=== PATIENT | female | born 1965 | race Caucasian/White ===

== ENCOUNTER → 2019-11-25 00:01 | Outpatient (BNVA) | payer SELFPAY | PROVIDERS: PCP Nurse Practitioner; Referring Provider Nurse Practitioner; Visit Provider Nurse Practitioner | DX: J01.40 Acute pansinusitis, unspecified (principal); Z76.89 Persons encountering health services in other specified circumstances; F17.200 Nicotine dependence, unspecified, uncomplicated | CPT/HCPCS: 80053; 80061; 83036; 85025 ==

== ENCOUNTER 2020-01-04 14:20 | Outpatient (CLI) | payer SELFPAY ==
--- NOTE | 2020-01-04 14:31 | MM_ITS ---
WS: [id number] BILATERAL DIGITAL SCREENING MAMMOGRAPHY WITH CAD CLINICAL INFORMATION: SCREEN HISTORY: Screening mammogram. No current complaints. COMPARISON: None. TECHNIQUE: Bilateral CC and MLO views. FINDINGS: Scattered fibroglandular densities bilaterally. No suspicious focal mass, asymmetry, calcifications, or architectural distortion. No evidence of malignancy. MM/[place] [id number] IMPRESSION: BI-RADS: 1-Negative FOLLOW UP: 1 Year Follow-up Recommend return to annual screening mammography.
== END 2020-01-04 14:21 | disposition home or self-care (01) ==
LOC: RADSHAW 14:24
PROVIDERS: PCP Nurse Practitioner; Visit Provider Nurse Practitioner
DX: Z12.31 Encounter for screening mammogram for malignant neoplasm of breast (principal)
CPT/HCPCS: 77067

== ENCOUNTER → 2020-07-26 11:08 | Outpatient (BNVA) | payer SELFPAY | PROVIDERS: PCP Family Medicine; Visit Provider Family Medicine | DX: Z13.6 Encounter for screening for cardiovascular disorders (principal); R79.89 Other specified abnormal findings of blood chemistry | CPT/HCPCS: 80053; 80061; 85025 ==

== ENCOUNTER → 2020-10-18 15:20 | Outpatient (BNVA) | payer SELFPAY | PROVIDERS: PCP Family Medicine; Visit Provider Family Medicine | DX: R10.9 Unspecified abdominal pain (principal) | CPT/HCPCS: 81000; 87086 ==

== ENCOUNTER → 2021-10-13 16:17 | Outpatient (BNVA) | payer OTHER, SELFPAY | PROVIDERS: PCP Family Medicine; Visit Provider Nurse Practitioner Family | DX: Z20.822 Contact with and (suspected) exposure to COVID-19 (principal) | CPT/HCPCS: 87635 ==

== ENCOUNTER 2021-11-30 12:03 | Emergency (ER) | payer SELFPAY ==
[2021-11-30 12:18] VITALS: BP 120/78; PULSE 86; RESP 14; TEMP 37.3; O2SAT 96; BMI 32.8
--- NOTE | 2021-11-30 12:30 | XR_ITS ---
WS: [id number] Exam: XR chest 1V portable [id number] Date/Time of Exam: 11/30/2021 12:32 PM Reason For Exam: cough No priors. Findings: The lungs are clear and fully expanded. Costophrenic angles are sharp. No infiltrates. Bronchovascula r relief appears normal. Cardiac silhouette is unremarkable. Bony elements are intact. XR/XR chest 1V portable [id number] IMPRESSION: Unremarkable chest radiograph.
--- NOTE | 2021-11-30 20:32 | ED_ITS ---
HPI - COVID General: Chief Complaint: COVID symptoms Stated Complaint: Runny nose, cough, and now has extreme weakness Time Seen by Provider: 11/30/21 19:57 Triage information: No fever, cough or shortness of breath . No known COVID + exposure last 14 days History of Present Illness: HPI Narrative: 56-year-old female comes in today with complaints of sinus pain, cough and congestion, and some shortness of breath. Patient reports being tested for COVID-19 and negative. Patient called out of work today and needed a note in able to return. Patient was also looking for treatment for sinus infection. COVID 19 common symptoms: positive nasal congestion COVID Results: SARS-CoV-2 RNA (RT-PCR) Not detected (NOT DETECTED) 10/13/21 16:17 10/13/21 Review of Systems ENMT: Reports: nasal congestion and sinus pain PFSH ED PFSH: Medical History History of cervical cancer Sciatica of left side Smoking Surgical History H/O: hysterectomy History of cholecystectomy History of removal of ovarian cyst Family History Other Cancer Social History Smoking and tobacco status: current every day smoker cigarettes Packs smoked per day: 0.25 Alcohol intake: never Marital status: Female Reproductive History: Para: 3 Physical Exam Const: COMMON NORMALS: patient oriented x3 and alert GENERAL APPEARANCE: cooperative HENMT: NOSE: Abnormal mucous membranes and turbinates present erythematous and Nasal discharge present Resp: COMMON NORMALS: normal respiratory effort and clear to auscultation bilaterally AUSCULTATION: clear to auscultation bilaterally Cardio: COMMON NORMALS: regular rate and regular rhythm RATE: regular rate RHYTHM: regular rhythm Extremity: COMMON NORMALS: no pedal edema Neuro: COMMON NORMALS: patient oriented x3 SENSORIUM/ORIENTATION: Yes alert Psych: ATTITUDE: Yes calm Skin: COMMON NORMALS: no rashes or lesions noted GENERAL SKIN EXAM: no rashes or lesions noted Course Vital Signs: Vital signs: Vital Signs Temperature 99.1 F 11/30/21 12:18 Pulse Rate 62 11/30/21 20:52 Respiratory Rate 16 11/30/21 20:52 Blood Pressure 120/78 11/30/21 12:18 Pulse Oximetry 92 11/30/21 20:52 MDM - COVID MDM Narrative: Medical decision making narrative: Patient comes in today with complaints of sinus symptoms and shortness of breath. On exam lungs were clear to auscultation. Skin was warm and dry. Sinus pain was noted on palpation. Vital signs were normal. Differential diagnosis includes rhinosinusitis, viral syndrome, pneumonia. Chest x-ray was negative. Patient refused COVID-19 testing. We will go ahead and treat for bacterial sinus infection with doxycycline dexamethasone. Patient agreed to plan of treatment and need for return or follow-up with primary care. COVID Results: SARS-CoV-2 RNA (RT-PCR) Not detected (NOT DETECTED) 10/13/21 16:17 10/13/21 Discharge Plan Discharge Patient Disposition: Home Clinical Impression: Acute bacterial rhinosinusitis Condition: Stable Prescriptions: New doxycycline monohydrate 100 mg capsule 100 mg PO Q12H 7 Days Qty: 14 RF: 0 dexamethasone 4 mg tablet 4 mg PO DAILY Qty: 5 RF: 0 No Action triamcinolone acetonide 0.1 % cream 1 applic topical BID 7 Days Qty: 30 RF: 0 Discharge Orders: Discharge ED (Routine); Ordered 11/30/21 Ordered By: Víctor Pearce Referrals: Sara Mcneill DO [Primary Care Provider] - Patient Instructions: Rhinosinusitis (ED), Opioid Safety Activity Restrictions/Additional Instructions: Home and rest. Drink plenty of water. Take medications as directed. Follow-up with primary care for further instruction. Return to the ER for new concerns or worsening symptoms. 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
[2021-11-30] MEDS: dexamethasone 4 mg Tablet 8 MG PO (20:48)
[2021-11-30] MEDS: doxycycline 100 mg Tablet PO (20:49)
[2021-11-30 20:52] VITALS: PULSE 62; RESP 16; O2SAT 92
== END 2021-11-30 20:54 | disposition home or self-care (01) ==
PROVIDERS: Emergency Provider Nurse Practitioner Family; PCP Family Medicine
DX: J01.80 Other acute sinusitis (principal); Z85.41 Personal history of malignant neoplasm of cervix uteri; F17.210 Nicotine dependence, cigarettes, uncomplicated
CPT/HCPCS: 71045; 99283; J8540

== ENCOUNTER 2022-11-14 21:57 | Emergency (ER) | payer SELFPAY ==
[2022-11-14 22:05] VITALS: BP 126/84; PULSE 83; RESP 16; TEMP 36.6; O2SAT 97
--- NOTE | 2022-11-14 22:05 | XRR_ITS ---
PROCEDURE INFORMATION: Exam: XR Left Foot Exam date and time: 11/14/2022 10:13 PM Age: 56 years old Clinical indication: Pain; Foot; Left; Additional info: Injury TECHNIQUE: Imaging protocol: Radiologic exam of the Left foot. Views: 3 or more views. COMPARISON: No relevant prior studies available. FINDINGS: Bones/joints: Normal. Soft tissues: Normal. XR/XR foot LT min 3V* [id number] IMPRESSION: No acute findings.
--- NOTE | 2022-11-14 22:52 | ED_ITS ---
HPI - Extremity Problem General: Chief complaint: Extremity Injury, Lower Stated complaint: left foot big toe injury Time Seen by Provider: 11/14/22 22:11 History of Present Illness: Patient is a 56-year-old female comes to the ED with left great toe injury. Injury occurred just prior to arrival. Patient says she had about 2 pounds of frozen deer meat that she dropped on her left great toe. She now has pain and swelling around the left great toe that she rates at 10 out of 10. She says it hurts to move left great toe. Associated symptoms: Deny chest pain, fever(s) or rash Review of Systems Const: Denies: fever(s), chills or fatigue Eyes: Denies: change in vision or eye discomfort ENMT: Denies: throat pain, odynophagia, nasal discharge or nasal congestion Card: Denies: chest pain, palpitations, edema, swelling of feet/ankles, dyspnea on exertion or orthopnea Resp: Denies: dyspnea, productive cough or non-productive cough GI: Denies: abdominal pain, nausea, vomiting, diarrhea, constipation or hematochezia : Denies: flank pain, dysuria or hematuria Musc: Reports: extremity pain (left great toe) and extremity swelling (left great toe); Denies: neck pain or back pain Skin/Breast: Denies: rash or new lesions Neuro: Denies: headache(s), numbness in extremities or weakness in extremities PFSH ED PFSH: Medical History History of cervical cancer Sciatica of left side Smoking Surgical History H/O: hysterectomy History of cholecystectomy History of removal of ovarian cyst Family History Other Cancer Social History Smoking and tobacco status: current every day smoker cigarettes Packs smoked per day: 0.25 Alcohol intake: never Marital status: Female Reproductive History: Para: 3 Physical Exam Const: COMMON NORMALS: no acute distress, patient oriented x3 and alert GENERAL APPEARANCE: cooperative and comfortable HENMT: COMMON NORMALS: normocephalic HEAD & SCALP: normocephalic MOUTH: Normal oral and palatal mucosa present THROAT: posterior oropharynx normal and uvula midline Neck/C-Spine: COMMON NORMALS: supple GENERAL: Yes normal visual inspection Resp: COMMON NORMALS: normal respiratory effort, No retractions, No use of accessory muscles and clear to auscultation bilaterally AUSCULTATION: clear to auscultation bilaterally Cardio: COMMON NORMALS: regular rate, regular rhythm, S1 normal heart sound present, S2 normal heart sound present, No gallops present (Cardio), No clicks present (Cardio), No murmurs present (Cardio) and Peripheral pulses 2+ throughout RATE: regular rate RHYTHM: regular rhythm HEART SOUNDS: S1 normal heart sound present and S2 normal heart sound present PERIPHERAL PULSES: Peripheral pulses 2+ throughout GI: COMMON NORMALS: Normal to inspection, nondistended, normoactive bowel sounds present, Soft to palpation, non-tender and no masses PALPATION: Yes Soft to palpation : COMMON NORMALS: Yes no CVA tenderness BLADDER/KIDNEY EXAM: Yes no CVA tenderness Back/Pelvis: COMMON NORMALS: no CVA tenderness Extremity: NARRATIVE EXTREMITY EXAM: Left great toe?no deformity noted. Mild ecchymosis and swelling noted. No subungual hematoma seen. Neuro: COMMON NORMALS: patient oriented x3 SENSORIUM/ORIENTATION: Yes alert GAIT: Yes Normal gait present Skin: GENERAL SKIN EXAM: dry skin Course Vital Signs: Vital signs: Vital Signs Temperature 97.9 F 11/14/22 22:05 Pulse Rate 90 11/14/22 23:41 Respiratory Rate 16 11/14/22 23:41 Blood Pressure 135/75 11/14/22 23:41 Pulse Oximetry 97 11/14/22 23:41 Oxygen Delivery Me thod 11/14/22 22:05 MDM - Extremity (Nontraumatic) Medical Decision Making Patient is a 56-year-old female comes to the ED with left great toe injury. Injury occurred just prior to arrival. Patient says she had about 2 pounds of frozen deer meat that she dropped on her left great toe. She now has pain and swelling around the left great toe that she rates at 10 out of 10. She says it hurts to move left great toe. Vitals are stable. Left great toe?no deformity noted. Mild ecchymosis and swelling noted. No subungual hematoma seen. X-ray of left foot shows no acute fractures. Patient diagnosed with contusion of great toe of left foot and was stable for discharge home. Sent home with some crutches to help with ambulation for the next couple days. Return to ED precautions given. Follow-up with PCP in the next week for reevaluation. Patient understood and agreed with plan. Lab Data Radiology Impressions Foot X-Ray 11/14/22 22:05 IMPRESSION: No acute findings. Discharge Plan Discharge Patient Disposition: Home Clinical Impression: Contusion of great toe of left foot Qualifiers: Encounter type: initial encounter Damage to nail status: without damage Qualified Code(s): S90.112A - Contusion of left great toe without damage to nail, initial encounter Condition: Stable Prescriptions: New ibuprofen 800 mg tablet 800 mg PO Q8H PRN (Reason: pain) Qty: 20 0RF Discharge Orders: Discharge ED (Routine); Ordered 11/14/22 Ordered By: Juan Casillas Referrals: Sara Mcneill DO [Primary Care Provider] - Discharge Diet: Regular Discharge Activity: Increase activity as tolerated and Use walker/crutches as instructed Activity Restrictions/Additional Instructions: Follow-up with medical provider as directed in the next 5 to 7 days reevaluation. Use crutches for the next 1 to 2 days to limit weightbearing and help with symptoms. Rest, ice and elevate left foot toe. Take medications as prescribed. Return to the ER or your medical provider if condition worsens. Please read and understand discharge instructions. Thank you for choosing [facility] for your healthcare needs today. Please realize this is an emergency room and that we are providing you with a medical screening exam and this may not be complete and all inclusive of all the testing and or work up that you may need to determine your ailment or severity of your illness. It is very important that you follow up as instructed or that you return to the Emergency Department should you have concerns or if your condition changes or worsens in any way. Stand Alone Forms: Work/School Release Coding Level of Care Code ED Assistant Associate Professor for [employer] Exam Comprehensive
[2022-11-14] MEDS: HYDROcodone-acetaminophen 7.5-325 mg Tablet 1 TAB PO (23:14)
[2022-11-14 23:41] VITALS: BP 135/75; PULSE 90; RESP 16; O2SAT 97
== END 2022-11-14 23:42 | disposition home or self-care (01) ==
PROVIDERS: Emergency Provider Physician Assistant; PCP Family Medicine
DX: S90.112A Contusion of left great toe without damage to nail, initial encounter (principal); Z85.41 Personal history of malignant neoplasm of cervix uteri; F17.210 Nicotine dependence, cigarettes, uncomplicated; W20.8XXA Other cause of strike by thrown, projected or falling object, initial encounter
CPT/HCPCS: 73630; 99283; E0114

== ENCOUNTER → 2024-01-10 17:23 | Outpatient (BNVA) | payer OTHER, SELFPAY | PROVIDERS: PCP Family Medicine; Visit Provider Emergency Medicine | DX: R05.9 Cough, unspecified (principal); J02.9 Acute pharyngitis, unspecified | CPT/HCPCS: 87071; 87400; 87880 ==

== ENCOUNTER → 2024-02-07 18:08 | Outpatient (BNVA) | payer OTHER, SELFPAY | PROVIDERS: PCP Family Medicine; Visit Provider Emergency Medicine | DX: R05.9 Cough, unspecified (principal) | CPT/HCPCS: 87400; 87426 ==

== ENCOUNTER → 2024-04-16 13:42 | Outpatient (BNVA) | payer OTHER, SELFPAY | PROVIDERS: PCP Family Medicine; Visit Provider Family Medicine | DX: Z12.11 Encounter for screening for malignant neoplasm of colon (principal); E66.9 Obesity, unspecified; M25.572 Pain in left ankle and joints of left foot; G89.29 Other chronic pain | CPT/HCPCS: 80053; 80061; 84439; 84443; 85025 ==

== ENCOUNTER → 2024-04-23 15:02 | Outpatient (BNVA) | payer OTHER, SELFPAY | PROVIDERS: PCP Family Medicine; Visit Provider Podiatrist Foot & Ankle Surgery | DX: M79.672 Pain in left foot (principal); M25.572 Pain in left ankle and joints of left foot; M25.372 Other instability, left ankle | CPT/HCPCS: 73610; 73620; 73630 ==

== ENCOUNTER → 2024-04-28 10:27 | Outpatient (CLI) | payer OTHER, SELFPAY ==
--- NOTE | 2024-04-28 10:30 | MM_ITS ---
WS: [id number] BILATERAL 3D TOMOSYNTHESIS DIGITAL SCREENING MAMMOGRAPHY WITH CAD CLINICAL INFORMATION: screening HISTORY: Screening mammogram. No current complaints. COMPARISON: 2020 TECHNIQUE: Bilateral CC and MLO views. FINDINGS: Scattered fibroglandular densities bilaterally. No suspicious focal mass, asymmetry, calcifications, or architectural distortion. No evidence of malignancy. Vascular calcification. MM/[place] [id number] IMPRESSION: BI-RADS: 2-Benign FOLLOW UP: 1 Year Follow-up Recommend return to annual screening mammography.
== END | disposition home or self-care (01) ==
LOC: RAD 10:26
PROVIDERS: PCP Family Medicine; Visit Provider Family Medicine
DX: Z12.31 Encounter for screening mammogram for malignant neoplasm of breast
CPT/HCPCS: 77063; 77067

== ENCOUNTER 2024-06-24 08:03 | Day surgery (SDC) | payer OTHER, SELFPAY ==
[2024-06-24 08:18] VITALS: BP 95/77; PULSE 82; RESP 18; TEMP 36.4; O2SAT 97
[2024-06-24] MEDS: sodium chloride 0.9% 1,000 ML 30 ML IV (08:29)
--- NOTE | 2024-06-24 08:50 | ANES.PREANE2 ---
Pre-Anesthetic Assessment Height/Weight: Height 1.6 m Weight 83.915 kg Temp Pulse Resp BP Pulse Ox O2 Del Method 97.6 F 82 18 95/77 97 Room Air 06/24/24 08:18 06/24/24 08:18 06/24/24 08:18 06/24/24 08:18 06/24/24 08:18 06/24/24 08:18 Preop Diagnosis: screening Operation Date: 06/24/24 09:00 Proposed Procedures p Colonoscopy 69533, G0121, Z12.11(Not Applicable) - Young Key DO Familial anesthetic complications: none Was Beta Adria taken within 24 hours: N/A Was Clonidine taken within 24 hours: N/A Last intake: Intake Last Liquid Date 06/23/24 Last Liquid Time 20:00 Last Solid Date 06/22/24 Last Solid Time 14:00 Social Tobacco (4 cigs/day) and No alcohol Exam alert and oriented x 3 Airway Submandibular: within normal limits Cervical ROM: within normal limits Mallampati: Class I Dentition: false History/ROS No significant history except as noted Pulmonary None reported CV/HEM None reported None reported Hepatic None reported GI Gastroesophageal Reflux Disease (minimal) Metabolic None reported Musc/skel None reported Neuropsych None reported Anesthetic Plan ASA status: 2 Anesthesia: Anesthesia Evaluation, General and MAC Risk of > 500 ml blood loss (7ml/kg in children): No Medications/Allergies Home Medications Medication Instructions Recorded Confirmed Last Taken Type Benadryl 50 mg PO .QPM 06/22/24 06/23/24 06/21/24 History ASO brace #1 ea 06/23/24 06/23/24 Unknown Rx cyclobenzaprine 5 mg tablet 5 mg PO BID PRN muscle spasm #20 06/23/24 06/24/24 Unknown Rx tabs Allergies Allergy/AdvReac Type Severity Reaction Status Date / Time clindamycin Allergy ADR-Diarrhe Verified 06/23/24 10:52 a penicillin G Allergy unknow Verified 06/23/24 10:52 Current Medications Generic Name Dose Route Start Last Admin Trade Name Freq PRN Reason Stop Dose Admin Sodium Chloride 1,000 mls @ 30 mls/hr 06/24/24 08:15 06/24/24 08:29 Sodium Chloride 0.9% IV 06/25/24 08:14 30 mls/hr .Q24H MONIE Administration PFSH Anesthesia Medical History History of cervical cancer Smoking Sciatica of left side Surgical History History of removal of ovarian cyst H/O: hysterectomy History of cholecystectomy Family History Other Cancer Social History Smoking and tobacco/nicotine status: never used tobacco/nicotine Alcohol intake: never Substance/Drug Use: never Marital status: Female Reproductive History Para: 3 Data Anesthesia Cardiac Studies: No Data to Display
--- NOTE | 2024-06-24 09:00 | PM.HP ---
Providers/Chief Complaint Primary Care Provider: Cisco Kinney MD Chief Complaint: Z12.11 History of Present Illness Nicolle Sandhu is a 58 year old female Review of Systems General: Reports: 10 or more systems reviewed and unremarkable except in HPI and below Medications/Allergies Home Medications Medication Instructions Recorded Confirmed Last Taken Type Benadryl 50 mg PO .QPM 06/22/24 06/23/24 06/21/24 History ASO brace #1 ea 06/23/24 06/23/24 Unknown Rx cyclobenzaprine 5 mg tablet 5 mg PO BID PRN muscle spasm #20 06/23/24 06/24/24 Unknown Rx tabs Allergies Allergy/AdvReac Type Severity Reaction Status Date / Time clindamycin Allergy ADR-Diarrhe Verified 06/23/24 10:52 a penicillin G Allergy unknow Verified 06/23/24 10:52 PFSH Acute PFSH: Medical History History of cervical cancer Smoking Sciatica of left side Surgical History History of removal of ovarian cyst H/O: hysterectomy History of cholecystectomy Family History Other Cancer Social History Smoking and tobacco/nicotine status: never used tobacco/nicotine Alcohol intake: never Substance/Drug Use: never Marital status: Female Reproductive History: Para: 3 Vitals/I&O/Wt Last Vital Signs Temp 97.6 F 06/24/24 08:18 Pulse 82 06/24/24 08:18 Resp 18 06/24/24 08:18 BP 95/77 06/24/24 08:18 Pulse Ox 97 06/24/24 08:18 O2 Del Method Room Air 06/24/24 08:18 Weight last 48 hrs Weight 185 lb A&P Assessment and plan (1) Encounter for screening for malignant neoplasm of colon: Plan Colonoscopy Attestations Medical Necessity Statement*: Home Coding Level of Care Code Acute Code for Chg Fwd Diagnoses Encounter for screening for malignant neoplasm of colon Z12.11
[2024-06-24 09:17] VITALS: BP 102/55; PULSE 65; RESP 17; TEMP 36.1; O2SAT 93
--- NOTE | 2024-06-24 09:20 | ANE.PACU2 ---
Inpatient post-anesthesia follow up: Airway intact: Yes Vital signs: Temperature 97.6 F Pulse Rate 82 Respiratory Rate 18 Blood Pressure 95/77 Pulse Oximetry 97 Oxygen Delivery Me thod Room Air Oxygen Flow Rate Fraction of Inspir ed Oxygen Hydration adequate: Yes Nausea and vomiting: No Pain level: 1 Mental status: Baseline
[2024-06-24 09:25] VITALS: BP 103/61; PULSE 62; RESP 18; O2SAT 97
[2024-06-24 09:40] VITALS: BP 97/64; PULSE 60; RESP 18; O2SAT 97
== END 2024-06-24 10:08 | disposition home or self-care (01) ==
PROVIDERS: PCP Family Medicine; Visit Provider Surgery
PROC: 0DJD8ZZ Inspection of Lower Intestinal Tract, Via Natural or Artificial Opening Endoscopic (ICD-10-PCS; CPT 45378; principal; 2024-06-24 09:00)
DX: Z12.11 Encounter for screening for malignant neoplasm of colon (principal); K64.8 Other hemorrhoids; K21.9 Gastro-esophageal reflux disease without esophagitis; Z85.41 Personal history of malignant neoplasm of cervix uteri
CPT/HCPCS: 45378; J2704; J7030

== ENCOUNTER → 2024-08-04 09:52 | Outpatient (BNVA) | payer OTHER, SELFPAY | PROVIDERS: PCP Family Medicine; Visit Provider Family Medicine | DX: Z01.419 Encounter for gynecological examination (general) (routine) without abnormal findings (principal) | CPT/HCPCS: 87624 ==

== ENCOUNTER → 2024-08-28 09:20 | Outpatient (BNVA) | payer OTHER, SELFPAY | PROVIDERS: PCP Family Medicine; Visit Provider Obstetrics & Gynecology | DX: N72 Inflammatory disease of cervix uteri (principal); B97.7 Papillomavirus as the cause of diseases classified elsewhere; R87.613 High grade squamous intraepithelial lesion on cytologic smear of cervix (HGSIL) | CPT/HCPCS: 88305 ==

== ENCOUNTER → 2024-09-18 10:34 | Outpatient (BNVA) | payer OTHER, SELFPAY | PROVIDERS: PCP Family Medicine; Visit Provider Obstetrics & Gynecology | DX: R87.619 Unspecified abnormal cytological findings in specimens from cervix uteri (principal); N85.4 Malposition of uterus; N83.201 Unspecified ovarian cyst, right side | CPT/HCPCS: 76830 ==

== ENCOUNTER → 2024-09-29 15:25 | Outpatient (BNVA) | payer OTHER, SELFPAY | PROVIDERS: PCP Family Medicine; Visit Provider Emergency Medicine | DX: R30.0 Dysuria (principal) | CPT/HCPCS: 81000 ==

== ENCOUNTER → 2024-10-28 14:48 | Outpatient (BNVA) | payer OTHER, SELFPAY | PROVIDERS: PCP Family Medicine; Visit Provider Family Medicine | DX: E03.9 Hypothyroidism, unspecified (principal); R87.613 High grade squamous intraepithelial lesion on cytologic smear of cervix (HGSIL); M25.572 Pain in left ankle and joints of left foot; E66.9 Obesity, unspecified; F17.200 Nicotine dependence, unspecified, uncomplicated; Z71.6 Tobacco abuse counseling; N18.2 Chronic kidney disease, stage 2 (mild) | CPT/HCPCS: 80053; 84439; 84443 ==

== ENCOUNTER → 2025-02-04 16:18 | Outpatient (BNVA) | payer OTHER, SELFPAY | PROVIDERS: PCP Family Medicine; Visit Provider Family Medicine | DX: E03.9 Hypothyroidism, unspecified (principal) | CPT/HCPCS: 84439; 84443 ==

== ENCOUNTER 2025-03-02 10:52 | Day surgery (SDC) | payer OTHER, SELFPAY ==
[2025-03-02] VITALS (10 sets, daily range): BP systolic 89–128; BP diastolic 50–79; PULSE 70–90; RESP 13–19; TEMP 36.1–36.8; O2SAT 91–96; BMI 34.0
--- NOTE | 2025-03-02 01:28 | W.PM.OPSFHP ---
Same Day Surgery H&P Indication for Procedure/HPI DATE OF PROCEDURE: March 02, 2025 CHIEF COMPLAINT/INDICATIONFOR SURGICAL PROCEDURE: cervical dysplasia PREOP DIAGNOSIS: cervical dysplasia PLANNED PROCEDURE: Operation Date: 03/02/25 12:25 Proposed Procedures p Cervical Conization 77345, R87.619, B97.7, R87.613(Not Applicable) - Julian Lane MD Medications/Allergies* Home Medications ?Medication ?Instructions ?Recorded ?Confirmed ?Type Benadryl 50 mg PO .QPM 06/22/24 02/04/25 History Allergies/Adverse Reactions Allergy/AdvReac Type Severity Reaction Status Date / Time penicillin G Allergy Intermediate ADR-Vomitin Verified 03/01/25 13:39 g perfume Allergy Mild ADR-Nausea Verified 02/04/25 15:28 clindamycin Allergy ADR-Diarrhe Verified 02/04/25 15:28 a cologne Allergy Mild ADR-Nausea Uncoded 02/04/25 15:28 Pertinent History/Comorbid Conditions* Medical History (Updated 02/04/25 @ 16:06 by Cisco Kinney MD) Chronic kidney disease, stage 2 (mild) 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 History of cervical cancer Smoking Sciatica of left side Surgical History (Updated 09/26/24 @ 22:[address] MD) History of removal of ovarian cyst H/O: hysterectomy History of cholecystectomy Family History (Updated 08/28/24 @ 08:36 by Amy Steiner LPN) Heart disease Grandfather Breast cancer Grandmother Hypertension Grandmother Mother Denies family history of Colon cancer Ovarian cancer Prostate cancer Diabetes Uterine cancer Thyroid disease Stroke Social History Smoking and tobacco/nicotine status: current every day tobacco/nicotine user cigarettes Packs smoked per day: 0.25 Pertinent Exam Findings alert, oriented x 3, clear to auscultation bilaterally and regular rate & rhythm Recommendations Surgery/Procedure today Coding Level of Care Code Acute Code for Chg Fwd
[2025-03-02] MEDS: sodium chloride 0.9% 1,000 ML 30 ML IV (11:22)
--- NOTE | 2025-03-02 11:28 | ANES.PREANE2 ---
Pre-Anesthetic Assessment Height/Weight: Height 5 ft 3 in Weight 192 lb Temp Pulse Resp BP Pulse Ox O2 Del Method 98.2 F 84 17 128/79 96 Room Air 03/02/25 11:14 03/02/25 11:14 03/02/25 11:14 03/02/25 11:14 03/02/25 11:14 03/02/25 11:15 Preop Diagnosis: cervical dysplasia Operation Date: 03/02/25 12:25 Proposed Procedures p Cervical Conization 31420, R87.619, B97.7, R87.613(Not Applicable) - Julian Lane MD Was Beta Adria taken within 24 hours: N/A Was Clonidine taken within 24 hours: N/A Last intake: Intake Last Liquid Date 03/01/25 Last Liquid Time 20:00 Last Solid Date 03/01/25 Last Solid Time 19:00 Social Tobacco and No alcohol Exam alert, oriented x 3 and regular rate & rhythm Decreased breath sounds bilaterally Airway Submandibular: within normal limits Cervical ROM: within normal limits Mallampati: Class II Comments: Comments: Edentulous Anesthetic Plan ASA status: 3 Anesthesia: General Other: No prior issues with anesthesia NPO since yesterday evening History of hypothyroidism on Synthroid Patient has CKD stage III. BMP ordered BMI 34 Current smoker Plan for general anesthesia Medications/Allergies Home Medications ?Medication ?Instructions ?Recorded ?Confirmed ?Last Taken ?Type Benadryl 50 mg PO .QPM 06/22/24 02/04/25 06/21/24 History sumatriptan succinate 25 mg tablet See Rx Instructions PO .COMPLEX #9 02/04/25 03/01/25 Unknown Rx tabs levothyroxine 50 mcg tablet 50 mcg PO DAILY #90 tabs 02/05/25 03/02/25 03/02/25 09:00 Rx Allergies Allergy/AdvReac Type Severity Reaction Status Date / Time penicillin G Allergy Intermediate ADR-Vomitin Verified 03/01/25 13:39 g perfume Allergy Mild ADR-Nausea Verified 02/04/25 15:28 clindamycin Allergy ADR-Diarrhe Verified 02/04/25 15:28 a cologne Allergy Mild ADR-Nausea Uncoded 02/04/25 15:28 Current Medications Generic Name Dose Route Start Last Admin Trade Name Freq PRN Reason Stop Dose Admin Sodium Chloride 1,000 mls @ 30 mls/hr 03/02/25 11:15 03/02/25 11:22 Sodium Chloride 0.9% IV 03/03/25 11:14 30 mls/hr .Q24H MONIE Administration PFSH Anesthesia Medical History (Updated 02/04/25 @ 16:06 by Cisco Kinney MD) Chronic kidney disease, stage 2 (mild) 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 History of cervical cancer Smoking Sciatica of left side Surgical History History of removal of ovarian cyst H/O: hysterectomy History of cholecystectomy Family History Grandmother Breast cancer Hypertension Grandfather Heart disease Mother Hypertension Denies family history of Colon cancer Ovarian cancer Prostate cancer Diabetes Uterine cancer Thyroid disease Stroke Social History Smoking and tobacco/nicotine status: current every day tobacco/nicotine user cigarettes Packs smoked per day: 0.25 Female Reproductive History Para: 3 Data Anesthesia 03/02/25 11:31 Cardiac Studies: No Data to Display
--- NOTE | 2025-03-02 11:52 | W.PM.OPSUD ---
Surgery/Procedure H&P Update DATE OF PROCEDURE: March 02, 2025 DATE H&P PERFORMED: 03/02/25 H&P UPDATE INFORMATION: I have reviewed H&P completed within last 30 days, I have examined patient prior to procedure and No changes to prior documentation PREOP DIAGNOSIS: cervical dysplasia PLANNED PROCEDURE: Operation Date: 03/02/25 12:25 Proposed Procedures p Cervical Conization 77911, R87.619, B97.7, R87.613(Not Applicable) - Julian Lane MD
[2025-03-02 11:55] LABS: Anion Gap 17.5 (5-19); Blood Urea Nitrogen 12 mg/dL (6-20); Calcium 9.6 mg/dL (8.5-10.5); Carbon Dioxide 23 mmol/L (22-29); Chloride 109 mmol/L (98-107); Creatinine Clr Calc Pharmacy 71.2876; Glomerular Filtration Rate 64.3 mL/min (90-130); Glucose 105 mg/dL (65-115); Osmolality Calculated 300 mOsm/kg (285-295); Potassium 4.5 mmol/L (3.5-5.1); Sodium 145 mmol/L (136-145)
[2025-03-02] MEDS: vasopressin 20 unit/mL INJ 10 UNIT INJECTION (12:41)
--- NOTE | 2025-03-02 13:20 | PM.OP ---
Operative Report Date of procedure: March 02, 2025 Pre-op diagnosis: cervical dysplasia, KIMMY II Post-op diagnosis: same Procedure done: Electrosurgical loop excision of the cervix Implants: none Specimens removed/disposition: cervical tissue Surgeon: Julian Lane MD Anesthesia: MAC Estimated blood loss (mL): 5 Complications: none Condition: stable Disposition: PACU Brief History: 59 y.o. with cervical KIMMY II by colposcopically-directed cervical biopsy now for electrosurgical loop excision of cervix Procedure: Informed consent signed The patient was taken to the operating room and placed supine on the table. MAC anesthesia was induced. The patient was placed in dorsolithotomy position. The patient was prepped and draped in the usual sterile fashion. A bivalve speculum was placed in the vagina. The anterior lip of the cervix was grasped with a single toothed tenaculum. The cervix was then infiltrated at the cervicovaginal junction with 20 U of vasopressin to decrease bleeding. Electrosurgical loop excision of the cervix was done to a depth of approximately 5 mm. Excellent hemostasis was noted. All instruments were then removed. The patient was placed supine, awakened, and taken to the recovery room. Postoperative condition: stable EBL: less than 5 cc Complications: none Sponge and instrument counts were correct x two
[2025-03-02] MEDS: acetaminophen 500 mg Tablet 1000 MG PO (14:06)
--- NOTE | 2025-03-02 14:28 | ANE.PACU2 ---
Inpatient post-anesthesia follow up: Airway intact: Yes Vital signs: Temperature 98 F Pulse Rate 70 Respiratory Rate 18 Blood Pressure 99/66 Pulse Oximetry 96 Oxygen Delivery Me thod Room Air Oxygen Flow Rate 3 Fraction of Inspir ed Oxygen Hydration adequate: Yes Nausea and vomiting: No Pain level: 1 Mental status: Baseline Additional Comments: Patient states that she had right sided tingling in upper and lower extremity. She states that this was present when she came in but did not say anything to anyone. No loss of motor. Patient is not concerned
== END 2025-03-02 14:28 | disposition home or self-care (01) ==
PROVIDERS: Student in an Organized Health Care Education/Training Program; PCP Family Medicine; Visit Provider Obstetrics & Gynecology
PROC: 0UBC7ZZ Excision of Cervix, Via Natural or Artificial Opening (ICD-10-PCS; CPT 57520; principal; 2025-03-02 12:25)
DX: N87.1 Moderate cervical dysplasia (principal); N72 Inflammatory disease of cervix uteri; B97.7 Papillomavirus as the cause of diseases classified elsewhere; E03.9 Hypothyroidism, unspecified; N18.30 Chronic kidney disease, stage 3 unspecified; F17.210 Nicotine dependence, cigarettes, uncomplicated; Z85.41 Personal history of malignant neoplasm of cervix uteri; Z88.0 Allergy status to penicillin; Z88.1 Allergy status to other antibiotic agents; Z79.890 Hormone replacement therapy
CPT/HCPCS: 57522; 36415; 80048; 88307; J2250; J2704; J3010; J3490; J7030; J9999

== ENCOUNTER → 2025-06-16 14:59 | Outpatient (BNVA) | payer OTHER, SELFPAY | PROVIDERS: PCP Family Medicine; Visit Provider Obstetrics & Gynecology | DX: R87.619 Unspecified abnormal cytological findings in specimens from cervix uteri (principal) | CPT/HCPCS: 87624 ==

== ENCOUNTER → 2025-07-30 15:13 | Outpatient (BNVA) | payer OTHER, SELFPAY | PROVIDERS: PCP Family Medicine; Visit Provider Family Medicine | DX: E03.9 Hypothyroidism, unspecified (principal) | CPT/HCPCS: 80053; 80061; 84439; 84443; 85025 ==

== ENCOUNTER → 2025-08-03 14:17 | Outpatient (BNVA) | payer OTHER, SELFPAY | PROVIDERS: PCP Family Medicine | DX: E03.9 Hypothyroidism, unspecified (principal) | CPT/HCPCS: 85025 ==

== ENCOUNTER → 2025-10-28 11:42 | Outpatient (BNVA) | payer OTHER, SELFPAY | PROVIDERS: PCP Family Medicine; Visit Provider Family Medicine | DX: N18.31 Chronic kidney disease, stage 3a (principal); E03.9 Hypothyroidism, unspecified | CPT/HCPCS: 80053; 84439; 84443 ==